=== PATIENT | female | born 1975 | race Caucasian/White ===

== ENCOUNTER 2021-06-28 21:59 | Emergency (ER) | payer SELFPAY ==
[~2021-06-28] VITALS: Ht 162.6 cm; Wt 68.0 kg
--- NOTE | 2021-06-28 22:30 | NUR ---
BIBS C/O NONSPECIFIC ABD PAIN X 2DAYS, +N/V/D STARTED TODAY, UNABLE TO KEEP PO DOWN. PT UNVACCINATED FOR COVID AND HYAS RECENT +COVID CONTACTS. PT BREATHING IS EVEN AND UNLABORED 100% RA. PLACED ON MONITOR AND ALL V/S STABLE.
[2021-06-28] MEDS ORDERED: ONDANSETRON HCL/PF 4 MG/2 ML VIAL ONE (22:50)
--- NOTE | 2021-06-28 22:58 | NUR ---
LAC #20G S/L; PATENT AND INTACT. BLOOD COLLECTED AND GIVEN TO LAB
[2021-06-28] MEDS ORDERED: IV NS 0.9% 1,000 ML BAG IV ONE (23:00)
[2021-06-28] MEDS ORDERED: ONDANSETRON HCL/PF 4 MG/2 ML VIAL IVP ONE (23:00)
[2021-06-28] MEDS ORDERED: DICYCLOMINE HCL INJ 20 MG/2 ML AMPUL IM ONE ×2 (23:06→23:30)
[2021-06-28 23:29] LABS: BASOPHILS % (AUTO) 0.6 % (0.0-2.0); EOSINOPHILS % (AUTO) 0.2 % (0.0-6.0); HEMATOCRIT 41 % (33-45); HEMOGLOBIN 14.3 g/dL (11.5-14.8); LYMPHOCYTES # (AUTO) 0.7 K/uL (0.8-4.8); LYMPHOCYTES % (AUTO) 26.6 % (20.0-44.0); MEAN CORPUSCULAR HGB CONC 35 g/dl (31.0-36.0); MEAN CORPUSCULAR VOLUME 92 fL (82-100); MONOCYTES # (AUTO) 0.2 K/uL (0.1-1.30); NEUTROPHILS # (AUTO) 1.8 K/uL (1.8-8.9); NEUTROPHILS % (AUTO) 64.6 % (43.0-81.0); PLATELET COUNT (AUTO) 253 K/uL (150-450); RED BLOOD CELL COUNT(AUTO) 4.48 MIL/uL (4.0-5.2); WHITE BLOOD COUNT (AUTO) 2.8 K/uL (4.3-11.0)
[2021-06-28 23:40] LABS: BILIRUBIN,URINE NEGATIVE (NEGATIVE); COLOR,URINE AMBER (YELLOW); LEUKOCYTE ESTERASE ,URINE NEGATIVE (NEGATIVE); NITRITE, URINE NEGATIVE (NEGATIVE); PH,URINE 8.5 (5.0-8.0); PROTEIN,URINE TRACE mg/dl (NEGATIVE); UGLUCOSE NEGATIVE (NEGATIVE); UROBILINOGEN,URINE 0.2 EU/dL (0.2)
--- NOTE | 2021-06-28 23:44 | NUR ---
COVID SWAB COLLECTED AND SENT TO LAB
[2021-06-28 23:48] LABS: SQUAMOUS EPITHELIAL CELL,UR Many /HPF (None Seen)
[2021-06-28 23:49] LABS: BACTERIA,URINE Few /HPF (None Seen); WBC,URINE 0-2 /HPF (0-3)
[2021-06-28 23:53] LABS: BILIRUBIN,DIRECT 0.1 mg/dL (0.0-0.2); BILIRUBIN,TOTAL 0.3 mg/dL (0.2-1.0); CALCIUM, SERUM 8.4 mg/dL (8.5-10.1); CREATININE 0.7 mg/dL (0.6-1.3); POTASSIUM 3.5 mmol/L (3.5-5.1); TOTAL PROTEIN, SERUM 8.1 g/dL (6.4-8.2)
[2021-06-29] LABS: BAND % (MANUAL) 3 % (0.0-5.0); LYMPHOCYTES % (MANUAL) 27 % (16-48); MONOCYTES % (MANUAL) 4 % (0-11.0); NEUTROPHILS % (MANUAL) 66 (42-76)
--- NOTE | 2021-06-29 00:27 | NUR ---
COVID ANTIGEN (+) CONTACT DROPLET ISOLATION IN PL[facility] NOTIFIED
[2021-06-29] MEDS ORDERED: ONDA4TAB5 PO (00:31)
[2021-06-29] MEDS ORDERED: AZIT250T13 PO (00:59)
--- NOTE | 2021-06-29 01:15 | NUR ---
Patient discharged to home in stable condition. Written and verbal after care instructions given. Patient verbalizes understanding of instruction. IV line DC without incident.
[2021-06-29 01:26] VITALS: BP 107/64
--- NOTE | 2021-07-03 13:02 | NUR ---
PT POSITIVE FOR COVID AND CALLED TO NOTIFY
--- NOTE | 2021-07-03 13:03 | NUR ---
LEFT VOICEMAIL AND WILL CALL BACK FOR COVID RESULTS
== END 2021-06-29 01:27 | disposition home or self-care (01) ==
LOC: ER 22:17
DX: U07.1 COVID-19 (principal); J12.82 Pneumonia due to coronavirus disease 2019; R11.2 Nausea with vomiting, unspecified; R19.7 Diarrhea, unspecified
CPT/HCPCS: 36415; 74176; 80048; 80076; 81001; 83690; 85007; 85025; 87426; 96361; 96372; 96374; 99284; C9803; J0500; J2405; J7030; U0003